=== PATIENT | female | born 1955 | race Caucasian/White ===

== ENCOUNTER → 2016-11-08 12:57 | Outpatient (CLI) | payer MEDICAID | END | disposition home or self-care (01) | LOC: D.CN 10:00 → D.US 12:57 | DX: G40.101 Localization-related (focal) (partial) symptomatic epilepsy and epileptic syndromes with simple partial seizures, not intractable, with status epilepticus (principal); G91.1 Obstructive hydrocephalus; G93.0 Cerebral cysts; I65.23 Occlusion and stenosis of bilateral carotid arteries ==

== ENCOUNTER → 2016-12-27 10:14 | Outpatient (CLI) | payer MEDICAID | END | disposition home or self-care (01) | LOC: D.CN 10:00 | DX: G40.101 Localization-related (focal) (partial) symptomatic epilepsy and epileptic syndromes with simple partial seizures, not intractable, with status epilepticus (principal); G93.0 Cerebral cysts; I65.29 Occlusion and stenosis of unspecified carotid artery ==

== ENCOUNTER 2019-05-04 17:14 | Emergency (ER) | payer MEDICARE ==
[~2019-05-04] VITALS: Ht 154.9 cm; Wt 53.2 kg
[2019-05-04 17:47] VITALS: Ht 154.9 cm; Wt 53.2 kg
[2019-05-04] MEDS ORDERED: KEPPRA250 MG PO (17:49)
[2019-05-04] MEDS ORDERED: ALENDRONATE SODI5 MG PO (17:50)
[2019-05-04 18:57] LABS: BASOPHILS 0.6 % (0-2); HEMATOCRIT 50.5 % (36.0-48.0); HEMOGLOBIN 17.4 g/dL (12-16); IMMATURE GRANULOCYTES 0.3 % (0-5); MCH 34.9 pg (26.0-34.0); MCHC 34.5 g/dL (31.0-37.0); MCV 101.4 fL (80.0-100.0); MEAN PLATELET VOLUME 10.5 fL (7.4-10.4); MONOCYTES 8.1 % (2-11); PLATELET COUNT 187 10x3/uL (130-400); RBC 4.98 10x6/uL (4.00-5.40); RDW 12.4 % (11.5-14.5); WBC 7.9 10x3/uL (4.8-10.8)
[2019-05-04 19:09] LABS: CALC OSMOLALITY 271 mosm/kg (275-300); CALCIUM 9.7 mg/dL (8.5-10.1); CHLORIDE - SERUM 98 mmol/L (98-107); CREATININE - SERUM 0.7 mg/dL (0.6-1.3); GLUCOSE 103 mg/dL (74-106); POTASSIUM - SERUM 3.9 mmol/L (3.5-5.1); SODIUM 135 mmol/L (136-145); UREA NITROGEN 19 mg/dL (7-18); eGFR NON AFRICAN AMERICAN 90 mL/min (90-120)
[2019-05-04 19:15] LABS: ALBUMIN 3.8 g/dL (3.4-5.0); ALKALINE PHOSPHATASE 111 U/L (46-116); ALT (SGPT) 46 U/L (10-68); AMYLASE - SERUM 47 U/L (25-115); BILIRUBIN - TOTAL 0.59 mg/dL (0.2-1.3); CREATINE KINASE 25 UL (21-215); LIPASE 144 U/L (73-393); PROTEIN - SERUM 8.1 g/dL (6.4-8.2)
[2019-05-04 21:27] LABS: APPEARANCE CLEAR (CLEAR); COLOR YELLOW (YELLOW)
[2019-05-04 21:28] LABS: BILIRUBIN NEGATIVE (NEGATIVE); GLUCOSE NEGATIVE (NEGATIVE); KETONE LARGE mg/dL (NEGATIVE); NITRITE NEGATIVE (NEGATIVE); PROTEIN TRACE mg/dL (NEGATIVE); UROBILINOGEN NORMAL (NORMAL)
[2019-05-04 21:29] LABS: BACTERIA MODERATE /hpf (NEGATIVE); EPITHELIAL CELLS 0-5 /hpf (0-5); MUCUS <1+ /lpf (NONE SEEN); RED CELLS - URINE 0-5 /hpf (0-5); WHITE CELLS - URINE 0-5 /hpf (NEGATIVE)
[2019-05-04] MEDS ORDERED: ZOFRAN8 MG PO (21:35)
[2019-05-04] MEDS ORDERED: OMEPRAZOLE40 MG PO (21:35)
[2019-05-04 22:25] VITALS: BP 154/73
== END 2019-05-04 22:25 | disposition home or self-care (01) ==
LOC: D.ER 17:14
PROVIDERS: Family Medicine
DX: R10.13 Epigastric pain (principal); K29.80 Duodenitis without bleeding; K21.9 Gastro-esophageal reflux disease without esophagitis; R11.2 Nausea with vomiting, unspecified